=== PATIENT | male | born 1970 | race Caucasian/White ===

== ENCOUNTER 2017-05-14 16:34 | Emergency (ER) | payer MEDICAID, OTHER ==
[~2017-05-14] VITALS: Ht 152.4 cm; Wt 55.5 kg
[2017-05-14 16:38] VITALS: Ht 152.4 cm; Wt 55.5 kg
[2017-05-14] MEDS ORDERED: IBUPROFEN 800 MG TAB PO ONE (17:00)
--- NOTE | 2017-05-14 18:16 | RADRPT ---
PROCEDURE: XR Forearm. CLINICAL INDICATION: trauma, pain TECHNIQUE: AP and lateral views of the right forearm were obtained. COMPARISON: No prior studies are available for comparison. FINDINGS: There is normal mineralization and alignment. No fracture or osseous lesion is identified. The soft tissues are unremarkable. IMPRESSION: No definite abnormalities are identified. RPTAT:AAJJ Levar Rodriguez Physician Date Time Electronically viewed and signed by Levar Rodriguez Physician on 05/14/2017 18:16 /
--- NOTE | 2017-05-14 18:18 | RADRPT ---
PROCEDURE: XR Right Elbow. CLINICAL INDICATION: Pain, injury TECHNIQUE: AP, lateral and oblique views of the elbow performed. COMPARISON: None. FINDINGS: There is normal mineralization and alignment. No fracture or osseous lesion is identified. There is no significant joint space narrowing. There is a suggestion of an anterior fat pad sign. The soft tissues are unremarkable. IMPRESSION: Suggestion of an anterior fat pad sign. A followup study in 7 days is recommended to exclude an occ ult fracture. No acute fracture is currently identified. RPTAT:AAJJ Physician Jesse Date Time Electronically viewed and signed by Levar Rodriguez Physician on 05/14/2017 18:18 MONICA/
[2017-05-14] MEDS ORDERED: IBUP800T25 PO (18:24)
--- NOTE | 2017-05-14 18:24 | ERD ---
ER Documentation Chief Complaint Date/Time DATE: 05/14/17 TIME: 18:22 Chief Complaint Complains of right arm pain after a fall HPI This is a 46-year-old male who presents to the emergency room for evaluation of right arm pain after a fall. The patient states that he was in his garage and he fell forward and hit his elbow on a can of paint. The patient denies head injury or loss of consciousness. He localizes pain to the right elbow, states is worse with movement of the elbow. He came to the emergency room today for evaluation. ROS All systems reviewed and are negative except as per history of present illness. Allergies Allergies: Coded Allergies: No Known Allergy (Unverified , 05/14/17) PMhx/Soc History of Surgery: No Anesthesia Reaction: No Hx Neurological Disorder: No Hx Respiratory Disorders: No Hx Cardiac Disorders: No Hx Psychiatric Problems: No Hx Miscellaneous Medical Probl: No Hx Alcohol Use: Yes Hx Substance Use: No Hx Tobacco Use: No Physical Exam Vitals Vital Signs Date Time Temp Pulse Resp B/P Pulse Ox O2 Delivery O2 Flow Rate FiO2 05/14/17 16:38 100.5 104 20 133/96 99 Physical Exam INITIAL VITAL SIGNS: Reviewed by me GENERAL: The patient is well developed and appropriate for usual state of health in no apparent distress HEENT: Pupils equal, round, and reactive to light. EOMI. There is no scleral icterus. NECK: C-spine is soft and supple, there is no meningismus. There is no cervical lymphadenopathy. LUNGS: Clear to auscultation bilaterally. There are no rales, wheezes or rhonchi. HEART: Regular rate and rhythm, no murmurs, clicks, rubs or gallops. ABDOMEN: Soft, non-tender, non-distended. There are bowel sounds in all four quadrants. No rebound or guarding. EXTREMITIES: Soft tissue swelling noted at right elbow, partial limitation of right first digit, there is no peripheral cyanosis or edema. No focal swelling or erythema. NEUROLOGICAL: The patient moves all four extremities with 5/5 strength. Cranial nerves II - XII are intact. Normal gait. Alert and oriented SKIN: There is no apparent rash or petechiae. HEME/LYMPHATIC: There is no evidence of excessive bruising or lymphedema. PSYCHIATRIC: The patient does not appear anxious or depressed. Results 24 hrs Current Medications Medications (Trade) Dose Ordered Sig/Shell Route PRN Reason Start Time Stop Time Status Last Admin Dose Admin Ibuprofen (Motrin) 800 mg ONCE ONCE PO 05/14/17 17:00 05/14/17 17:03 DC 05/14/17 17:00 Procedures/MDM X-ray Forearm 2V Interpreted by me: Bones: No fracture Joints: No dislocation Foreign body: None X-ray Elbow 2V Interpreted by me: Fat Pads: Anterior fat pad Bones: No fracture Joints: No dislocation Foreign body: None This 46-year-old male presents to the ER for evaluation after a ground-level fall which she hit his right elbow. He did have soft tissue swelling on my examination. This patient has an x-ray done which shows an anterior fat pad sign. There is no obvious fracture however I advised the patient that occult fractures may not be apparent immediately after a fall. I advised him to return to the ER in 7 days for repeat x-rays and he verbalized understanding. The patient was placed in the right arm sling. He will be discharged home with a prescription for Motrin, and orthopedic referral. A right upper extremity arms splint was applied by the tech under my direct supervision. After splint application, the patient was appreciated to have a normal distal neurovascular examination. Departure Diagnosis: Primary Impression: Contusion of right elbow Condition: Stable COLTEN OSUNA DO May 14, 2017 18:24
== END 2017-05-14 18:35 | disposition home or self-care (01) ==
LOC: FTE 16:34
DX: S50.01XA Contusion of right elbow, initial encounter (principal); W01.198A Fall on same level from slipping, tripping and stumbling with subsequent striking against other object, initial encounter; Y92.9 Unspecified place or not applicable
CPT/HCPCS: 73080; 73090; Z7610

== ENCOUNTER 2017-05-18 11:32 | Inpatient (IN) | payer MEDICAID ==
[~2017-05-18] VITALS: Ht 152.4 cm; Wt 53.0 kg
[~2017-05-18 11:32] MED LIST: IBUP800T25 PO
--- NOTE | 2017-05-18 13:18 | RADRPT ---
PROCEDURE: XR Elbow 3 Views. CLINICAL INDICATION: Right elbow pain. TECHNIQUE: AP, lateral and oblique views of the right elbow performed. COMPARISON: May 14, 2017 FINDINGS: The osseous structures are intact. No destructive bony lesions are observed. Interosseous spaces a ppear normal. Soft tissues surrounding the elbow are unremarkable. IMPRESSION: Unremarkable right elbow. If further characterization is needed CT or MRI could be helpful. If there is high clinical suspicion for traumatic injury, further evaluation with CT should be consi dered. RPTAT: AA .Gamaliel Peterson MD, MD Date Time Electronically viewed and signed by .Gamaliel Peterson MD, on 05/18/2017 13:18 .P/
[2017-05-18 13:59] LABS: ADD SCAN DIFF NO
[2017-05-18 14:01] LABS: BASOPHIL # 0.1 10^3/ul (0.0-0.1); BASOPHILS % 0.8 % (0.0-2.0); EOSINOPHILS % 0.2 % (0.0-7.0); HEMATOCRIT 34.3 % (42.0-52.0); HEMOGLOBIN 11.7 g/dl (14.0-18.0); LYMPHOCYTES # 1.5 10^3/ul (0.8-2.9); LYMPHOCYTES % 13.4 % (15.0-51.0); MEAN CORPUSCULAR HEMOGLOBIN 31.1 pg (29.0-33.0); MEAN CORPUSCULAR HGB CONC 34.1 g/dl (32.0-37.0); MEAN CORPUSCULAR VOLUME 91.2 fl (82.0-101.0); MEAN PLATELET VOLUME 9.5 fl (7.4-10.4); MONOCYTE # 1.4 10^3/ul (0.3-0.9); MONOCYTES % 12.5 % (0.0-11.0); NEUTROPHIL # 8.3 10^3/ul (1.6-7.5); PLATELET COUNT 202 10^3/UL (140-415); RED BLOOD COUNT 3.76 10^6/ul (4.70-6.10); RED CELL DISTRIBUTION WIDTH 15.7 % (11.5-14.5); WHITE BLOOD COUNT 11.5 10^3/ul (4.8-10.8)
[2017-05-18] MEDS ORDERED: CEFTRIAXONE 1 GM/50 ML (PMX) 50 ML IVPB ONE (15:00)
[2017-05-18 16:37] LABS: ALBUMIN 3.9 g/dl (3.3-4.9); ALBUMIN/GLOBULIN RATIO 0.95; BILIRUBIN,DIRECT 1.6 mg/dl (0.00-0.20); BILIRUBIN,INDIRECT 1.4 mg/dl (0-1.1); CALCIUM 8.9 mg/dl (8.4-10.2); CREATININE 0.75 mg/dl (0.61-1.24); POTASSIUM 3.5 mmol/L (3.5-5.1)
[2017-05-18] MEDS ORDERED: KETOROLAC 30 MG INJ IV STA (16:38)
--- NOTE | 2017-05-18 16:48 | ERA ---
ER Documentation Chief Complaint Date/Time DATE: 05/18/17 TIME: 16:41 Chief Complaint here for recheck on rt elbow pain HPI Patient is a 46-year-old male who presents to the emergency department for a right elbow recheck. Patient was seen here on 05-14-17 and at that time diagnosed with a possible occult fracture of his right elbow secondary to an anterior fat pad. Patient states on 05-14-17, he was walking when he tripped and landed on patient cannot. Patient states since that time he has continued to have pain in his right elbow. Patient also reports swelling, redness and warmth to the affected area. Patient states he has been having tactile fevers. He reports taking ibuprofen for his symptoms. Patient is right-hand dominant. Patient denies any previous injuries to the affected extremity. ROS All systems reviewed and are negative except as per history of present illness. Medications Home Meds Discontinued Scripts Ibuprofen* (Motrin*) 800 Mg Tab, 800 MG PO Q6H Y for PAIN AND OR ELEVATED TEMP, #30 TAB Prov:COLTEN OSUNA 05/14/17 Allergies Allergies: Coded Allergies: No Known Allergy (Unverified , 05/18/17) PMhx/Soc History of Surgery: No Anesthesia Reaction: No Hx Neurological Disorder: No Hx Respiratory Disorders: No Hx Cardiac Disorders: No Hx Psychiatric Problems: No Hx Miscellaneous Medical Probl: No Hx Alcohol Use: Yes Hx Substance Use: No Hx Tobacco Use: No Smoking Status: Never smoker FmHx Family History: No diabetes Physical Exam Vitals Vital Signs Date Time Temp Pulse Resp B/P Pulse Ox O2 Delivery O2 Flow Rate FiO2 05/18/17 19:05 98.8 55 18 116/77 99 Room Air 05/18/17 11:35 97.6 98 18 114/77 99 Physical Exam GENERAL: Well-developed, well-nourished male. Appears in no acute distress. HEAD: Normocephalic, atraumatic. EYES: Pupils are equally reactive bilaterally. EOMs grossly intact. No conjunctival erythema. Scleral icterus noted. ENT: Moist mucous membranes. No uvula deviation. No kissing tonsils. NECK: Supple. No meningismus. Normal range of motion of the neck. LUNG: Clear to auscultation bilaterally. No rhonchi, wheezing, rales or coarse breath sounds. HEART: Regular rate and rhythm. No murmurs, rubs or gallops. EXTREMITIES: Equal pulses bilaterally. No peripheral clubbing, cyanosis or edema. No unilateral leg swelling. NEUROLOGIC: Alert and oriented. Moving all four extremities without any difficulty. Normal speech. Steady gait. SKIN: Normal color. Warm and dry. No rashes or lesions. RIGHT ELBOW: Numerous superficial abrasions distal to elbow. No obvious deformity. Significant swelling and redness surrounding the patient's elbow joint. No ecchymosis. Patient has decreased passive and active range of motion secondary to pain and swelling. Able to supinate and pronate. Sensation intact to light touch. Neurovascular intact. Patient able to give thumbs up, make okay sign, cross digits 2 and 3, thumb to pinky opposition. 2+ radial pulses. Normal capillary refill. Result Diagram: 05/18/17 1345 05/18/17 1600 Results 24 hrs Laboratory Tests Test 05/18/17 13:45 05/18/17 16:00 White Blood Count 11.510^3/ul Red Blood Count 3.7610^6/ul Hemoglobin 11.7g/dl Hematocrit 34.3% Mean Corpuscular Volume 91.2fl Mean Corpuscular Hemoglobin 31.1pg Mean Corpuscular Hemoglobin Concent 34.1g/dl Red Cell Distribution Width 15.7% Platelet Count 34134^3/UL Mean Platelet Volume 9.5fl Neutrophils % 72.0% Lymphocytes % 13.4% Monocytes % 12.5% Eosinophils % 0.2% Basophils % 0.8% Nucleated Red Blood Cells % 0.0/100WBC Neutrophils # 8.310^3/ul Lymphocytes # 1.510^3/ul Monocytes # 1.410^3/ul Eosinophils # 0.010^3/ul Basophils # 0.110^3/ul Nucleated Red Blood Cells # 0.010^3/ul Erythrocyte Sedimentation Rate 72mm/Hr C-Reactive Protein 8.1mg/dl Sodium Level 133mmol/L Potassium Level 3.5mmol/L Chloride Level 92mmol/L Carbon Dioxide Level 26mmol/L Anion Gap 19 Blood Urea Nitrogen 7mg/dl Creatinine 0.75mg/dl Glucose Level 98mg/dl Calcium Level 8.9mg/dl Total Bilirubin 3.0mg/dl Direct Bilirubin 1.60mg/dl Indirect Bilirubin 1.4mg/dl Aspartate Amino Transf (AST/SGOT) 101IU/L Alanine Aminotransferase (ALT/SGPT) 104IU/L Alkaline Phosphatase 264IU/L Creatine Kinase 158IU/L Creatine Kinase Index 2.4 Creatinine Kinase MB (Mass) 3.80ng/ml Troponin I < 0.012ng/ml Total Protein 8.0g/dl Albumin 3.9g/dl Globulin 4.10g/dl Albumin/Globulin Ratio 0.95 Current Medications Medications (Trade) Dose Ordered Sig/Shell Route PRN Reason Start Time Stop Time Status Last Admin Dose Admin Ceftriaxone Sodium (Rocephin) 50 ml @ 100 mls/hr ONCE ONCE IVPB 05/18/17 15:00 05/18/17 15:29 DC 05/18/17 14:43 Ketorolac Tromethamine (Toradol) 30 mg ONCE STAT IV 05/18/17 16:38 05/18/17 16:40 DC 05/18/17 16:47 IV Flush 10 ml 10 ml STK-MED ONCE .ROUTE 05/18/17 17:19 05/18/17 17:20 DC 05/18/17 17:38 Sodium Chloride (NS) 100 ml @ ud STK-MED ONCE .ROUTE 05/18/17 17:19 05/18/17 17:20 DC 05/18/17 17:38 Iohexol 150 ml 150 ml STK-MED ONCE .ROUTE 05/18/17 17:19 05/18/17 17:20 DC 05/18/17 17:38 Piperacillin Sod/ Tazobactam Sod 100 ml @ 200 mls/hr ONCE ONCE IVPB 05/18/17 18:30 05/18/17 18:59 DC 05/18/17 19:05 Vancomycin HCl (Vancocin) 250 ml @ 125 mls/hr ONCE IVPB 05/18/17 18:30 05/18/17 20:29 05/18/17 19:35 Ondansetron HCl (Zofran Inj) 4 mg BRIDGE ORDER PRN IV NAUSEA AND/OR VOMITING 05/18/17 19:00 05/19/17 18:59 Acetaminophen (Tylenol Tab) 650 mg ER BRIDGE PRN PO MILD PAIN/FEVER 05/18/17 19:00 05/19/17 18:59 Procedures/MDM ED COURSE: The patient was stable throughout ED course. I kept the patient and/or family informed of laboratory and diagnostic imaging results throughout the ED course. DIAGNOSTIC IMAGING: Read by radiologist. DIAGNOSTIC IMAGING REPORT Patient: TAMARA CHIANG : 1970 Age: 46 Sex: M MR #: [id number] DOS: 05/18/17 1233 Ordering MD: CHRISS CRAIN PA-C Location: [facility] Room/Bed: PROCEDURE: XR Elbow 3 Views. CLINICAL INDICATION: Right elbow pain. TECHNIQUE: AP, lateral and oblique views of the right elbow performed. COMPARISON: May 14, 2017 FINDINGS: The osseous structures are intact. No destructive bony lesions are observed. Interosseous spaces appear normal. Soft tissues surrounding the elbow are unremarkable. IMPRESSION: Unremarkable right elbow. If further characterization is needed CT or MRI could be helpful. If there is high clinical suspicion for traumatic injury, further evaluation with CT should be considered. RPTAT: AA .Gamaliel Peterson MD, Date Time Electronically viewed and signed by .Gamaliel Peterson MD, MD on 05/18/2017 13:18 .P/ CC: CHRISS CRAIN PA-C MEDICATIONS GIVEN: IV Rocephin, Toradol, Zosyn, Vancomycin Patient tolerated medication well with no adverse reactions. MEDICAL DECISION MAKING: This is a 46-year-old male who presents to the ED with right elbow pain after fall injury last week. Patient reports worsening pain, swelling and redness to the affected site. Patient was advised to return to the ED for repeat x-rays. Vital signs were reviewed. Patient was afebrile. Repeat x-rays of the right elbow were unremarkable. Patient was noted to have a WBC count of 11.5. Patient's ESR was noted to be 72. Patient's CRP was noted to be 8.1. Patient was given antibiotics and pain medication. Patient's alk phos was noted to be 264, ALT 104, AST 101, total bili 3.0. CK-MB was noted to be 3.8. I discussed the patient's findings with my supervising physicians, Drs. Bonilla and Lacho, who advised me to order a CT of the patient's right extremity with contrast. CT of right upper extremity with IV contrast pending. Case signed out to Dr. Monk. Prior to sign out patient was stable. Patient will be admitted for further workup of elevated liver enzymes and elbow presentation. Departure Diagnosis: Primary Impression: Pain and swelling of right elbow Additional Impressions: Jaundice Transaminitis Condition: Stable Referrals: [facility] YOU HAVE RECEIVED A MEDICAL SCREENING EXAM AND THE RESULTS INDICATE THAT YOU DO NOT HAVE A CONDITION THAT REQUIRES URGENT TREATMENT IN THE EMERGENCY DEPARTMENT. FURTHER EVALUATION AND TREATMENT OF YOUR CONDITION CAN WAIT UNTIL YOU ARE SEEN IN YOUR DOCTORS OFFICE WITHIN THE NEXT 1-2 DAYS. IT IS YOUR RESPONSIBILITY TO MAKE AN APPOINTMENT FOR FOLOW-UP CARE. IF YOU HAVE A PRIMARY DOCTOR --you should call your primary doctor and schedule an appointment IF YOU DO NOT HAVE A PRIMARY DOCTOR YOU CAN CALL OUR PHYSICIAN REFERRAL HOTLINE AT IF YOU CAN NOT AFFORD TO SEE A PHYSICIAN YOU CAN CHOSE FROM THE FOLLOWING [facility] [address] [facility] [address] [employer] [facility]. [place] [address] [facility] [facility] [address] [facility] [address] [facility]. [facility]. [address] [facility]. [facility] YOU HAVE RECEIVED A MEDICAL SCREENING EXAM AND THE RESULTS INDICATE THAT YOU DO NOT HAVE A CONDITION THAT REQUIRES URGENT TREATMENT IN THE EMERGENCY DEPARTMENT. FURTHER EVALUATION AND TREATMENT OF YOUR CONDITION CAN WAIT UNTIL YOU ARE SEEN IN YOUR DOCTORS OFFICE WITHIN THE NEXT 1-2 DAYS. IT IS YOUR RESPONSIBILITY TO MAKE AN APPOINTMENT FOR FOLOW-UP CARE. IF YOU HAVE A PRIMARY DOCTOR --you should call your primary doctor and schedule and appointment IF YOU DO NOT HAVE A PRIMARY DOCTOR YOU CAN CALL OUR PHYSICIAN REFERRAL HOTLINE AT . IF YOU CAN NOT AFFORD TO SEE A PHYSICIAN YOU CAN CHOSE FROM THE FOLLOWING [facility] [address] [place] [address] [facility] [address] [place] [address] [facility] + [facility] [address] [place] [address] Additional Instructions: Call your primary care doctor TOMORROW for an appointment during the next 1-2 days.See the doctor sooner or return here if your condition worsens before your appointment time. CHRISS CRAIN PA-C May 18, 2017 16:48 CHRISS CRAIN PA-C May 18, 2017 16:48
[2017-05-18 16:51] LABS: CREATINE KINASE 158 IU/L (23-200)
[2017-05-18 17:08] LABS: TROPONIN-I < 0.012 ng/ml (0.00-0.12)
[2017-05-18] MEDS ORDERED: IOHEXOL 300MG/ML 150 ML BTL ONE (17:19)
[2017-05-18] MEDS ORDERED: SOD CHLORIDE 0.9% 100 ML ONE (17:19)
[2017-05-18] MEDS ORDERED: PIPER-TAZO 3.375 GM IV (PMX) 100 ML IVPB ONE (18:30)
[2017-05-18] MEDS ORDERED: VANCOMYCIN 1 GM (PMX) 250 ML IVPB SCH (18:30)
[2017-05-18] MEDS ORDERED: ACETAMINOPHEN 325 MG TAB PO PRN ×2 (19:00→20:30)
[2017-05-18] MEDS ORDERED: ONDANSETRON 4 MG INJ IV PRN ×2 (19:00→20:30)
--- NOTE | 2017-05-18 19:35 | RADRPT ---
PROCEDURE: CT right elbow with contrast. CLINICAL INDICATION: Pain, swelling, redness. History of prior fall TECHNIQUE: CT scan of the right elbow was performed on a multi -slice scanner. About 100 ml Omnip aque-300 IV contrast was administered. Coronal and sagittal reformatted images were obtained from the axial source images. The total exam DLP equals 397 mGy-cm. The CDTI volume was 17 mGy. Images we re reviewed on a high-resolution PACS workstation. One or more of the following dose reduction techniques were used: Automated exposure control Adjustment of the mA and/or kV according to patient size. Use of iterative reconstruction technique. COMPARISON: 05/14/2017 radiographs FINDINGS: There is no acute fracture or dislocation. There is mild to moderate joint space narrowing of the u lnohumeral joint more prominent along the medial aspect with mild osseous spurring. The radiocapite llar joint is intact. There is a wlivcwoo-hv-btznn joint effusion with suggestion of synovitis/syno vial thickening. No bony destructive changes are present. There are no erosive changes. There are no osteochondral bodies. There is heterogeneous density of the triceps musculature in which edema and an ill-defined fluid ma y be present. The muscles and tendons around the elbow are limited in evaluation. There is soft tis suzanne stranding with swelling within the posterior, lateral, and medial elbow. There is no drainable abscess or fluid collection within the soft tissues. There is no subcutaneous gas or a sinus tract f rom the skin to the bone. The vascular structures are unremarkable. RPTAT: ZZ IMPRESSION: 1. Moderate to large joint effusion. This may be from trauma given history of fall without a discr ete fracture in which a follow-up MRI may be helpful for additional evaluation for tendon or ligamen tous injury. 2. Mild to moderate osteoarthrosis of the ulnohumeral joint with joint space narrowing and osseous spurring. No bony destructive changes or erosive changes. 3. Mild to moderate edema within the posterior, medial, and lateral elbow. .Nuria Soto MD, MD Date Time Electronically viewed and signed by .Nuria Soto MD, on 05/18/2017 19:35 .T/
--- NOTE | 2017-05-18 19:44 | QN ---
Documentation Comment I have seen and evaluated the patient along with the PA and/or IN [employer] SERVICE TECHNICIAN provider. I agree with the evaluation and plan of care. Please see their documentation for full ER course and evaluation. In short: 46-year-old male who presents after blunt trauma to the right upper extremity with erythema warmth and tenderness and swelling just proximal to the right elbow. Slight limited range of motion secondary to pain. No fevers or chills. On exam: The patient has erythema warmth and tenderness with induration just proximal to the left elbow. Approximately 70% range of motion to the elbow with normal pronation and supination. The patient has soft compartments and 2+ radial and ulnar pulses. Assessment and plan: The patient's right upper extremity is consistent with either myositis versus cellulitis 2/2 to blunt trauma. Consideration of septic arthritis though the patient does have 70% range of motion making this less likely. However the patient's ESR and CRP are elevated. CT imaging shows evidence of effusion. I spoke to Dr. Santoro, on-call for orthopedic surgery. We discussed the case. He additionally feels that this is less likely to be septic arthritis. He agrees with IV antibiotics and inpatient hospitalization with consultation as needed. The patient was given vancomycin and Zosyn his pain is well controlled. The patient is pending hospitalization at this time. Accepting care team and consultations: I discussed the current laboratory data, diagnostic imaging and emergency care provided. Admitting team: Dr. Dinero Admitting team indication: Insurance directed Consulting services: Orthopedic surgeon JULIET Ayala MD May 18, 2017 19:44
[2017-05-18] MEDS ORDERED: morphine 2 MG INJ IV PRN (20:30)
[2017-05-18] MEDS ORDERED: NACL 0.9% 3 ML SYG IV SCH (20:30)
[2017-05-18] MEDS ORDERED: HYDROmorphONE 1 MG/ML SYG IV STA (20:48)
[2017-05-18 20:56] VITALS: PULSE 50; TEMP 98.1
[2017-05-18 21:30] VITALS: BP 111/72; RESP 18
[2017-05-18 22:15] VITALS: Ht 152.4 cm; Wt 53.0 kg
[2017-05-18] MEDS ORDERED: VANCOMYCIN IV PER PHARMACY XX SCH (22:30)
--- NOTE | 2017-05-18 23:04 | HP ---
Date/Time of Note Date/Time of Note DATE: 05/18/17 TIME: 23:03 Assessment/Plan VTE Prophylaxis VTE Prophylaxis Intervention: SCD's Assessment/Plan Chief Complaint/Hosp Course This is a 46-year-old male being admitted to the [facility] floor for: #1 Right upper extremity cellulitis: Mildly elevated white blood cell count. Elevated ESR and CRP. patient has had subjective fevers at home. At the current time will treat with Vanco and Zosyn. Tylenol as needed fevers. IV pain control. #2 right elbow injury: X-ray on 05/14/17 showed a possible anterior fat pad sign. CT scan currently showed joint effusion with no obvious bony destructive process. However MRI was recommended for further ligament and tendon evaluation. MRI ordered for the a.m. Orthopedic surgery was consulted by ED however at this time they will follow-up as indicated by the primary team. #3 transaminitis/hyperbilirubinemia: Patient denies any right upper quadrant tenderness. Does state he has a heavy drinking history. At this time will order hepatitis panel and right upper quadrant ultrasound. GI consult. #4 alcohol abuse: Patient does report that he is going to [employer] meetings. He reports his last drink was 1 week ago. Will still order blood alcohol level and give patient daily banana bag in order vitamin B12 and folate levels. #5 DVT GI prophylaxis: SCDs, Protonix Further treatment strategy will be implemented as per the clinical course. Problems: HPI/ROS Admit Date/Time Admit Date/Time May 18, 2017 at 18:34 Hx of Present Illness cc: right elbow pain Patient is a 46-year-old male who presents to the emergency department for a right elbow recheck. Patient was seen here on 05-14-17 and at that time diagnosed with a possible occult fracture of his right elbow secondary to an anterior fat pad. Patient states on 05-14-17, he was walking when he tripped and landed on patient cannot. Patient states since that time he has continued to have pain in his right elbow. Patient also reports swelling, redness and warmth to the affected area. Patient states he has been having tactile fevers. He reports taking ibuprofen for his symptoms. Patient is right-hand dominant. Patient denies any previous injuries to the affected extremity. allergies:nkda meds: none ROS Const: As per HPI Eyes : No pain discharge or redness or change in visual acuity ENT: No pain, sore throat, congestion, congestion, dysphagia or discharge Respiratory: No shortness of breath, cough, sputum, wheezing, or pleuritic pain Cardiovascular: No chest pain, palpitation, PND, or edema GI : no change in appetite, abdominal pain, nausea, vomiting, diarrhea, constipation, or change in the color his stool Genitourinary: No dysuria, hematuria, flank pain , discharge or CVA tenderness Musculoskeletal: As per HPI Skin: No rash, bruising or hives Neuro: No headache, dizziness, syncope, seizure, focal weakness Endocrine: No polyuria, polydipsia, temperature intolerance Psych: No hallucination, depression, anxiety or suicidal ideation PMH/Family/Social Past Medical History Right thumb traumatic accident Past Surgical History Right thumb accident status post surgery Family History Significant Family History: heart disease (Sister) Social History Alcohol Use: heavy (Sixpack of beer a day. States his last drink was 1 week ago.) Smoking Status: Never smoker Drug Use: none Exam/Review of Systems Vital Signs Vitals Vital Signs Date Time Temp Pulse Resp B/P Pulse Ox O2 Delivery O2 Flow Rate FiO2 05/18/17 21:30 98.6 63 18 111/72 97 05/18/17 20:56 Room Air Exam Exam General: Patient is well-developed well-nourished The patient is alert oriented -3 lying comfortably in bed. HEENT: Atraumatic, normocephalic. The pupils are equal, round and reactive. Extraocular motor are intact Neck: Supple with full range of motion. No rigidity or meningismus Chest: Nontender Lungs: Clear to auscultation bilaterally no crackles rales or wheezing Heart: Normal S1-S2, Regular rhythm and rate. No murmur, S3, or S4 Abdomen: Soft , nontender, nondistended , bowel sounds are present. No right upper quadrant tenderness, no overt organomegaly appreciated no guarding no rebound tenderness , No costovertebral temporal angle mass Extremities: Right upper extremity elbow: Limited range of motion, swelling warmth and redness. 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 CLINICAL INDICATION: Pain, swelling, redness. History of prior fall TECHNIQUE: CT scan of the right elbow was performed on a multi -slice scanner. About 100 ml Omnipaque-300 IV contrast was administered. Coronal and sagittal reformatted images were obtained from the axial source images. The total exam DLP equals 397 mGy-cm. The CDTI volume was 17 mGy. Images were reviewed on a high-resolution PACS workstation. One or more of the following dose reduction techniques were used: Automated exposure control Adjustment of the mA and/or kV according to patient size. Use of iterative reconstruction technique. COMPARISON: 05/14/2017 radiographs FINDINGS: There is no acute fracture or dislocation. There is mild to moderate joint space narrowing of the ulnohumeral joint more prominent along the medial aspect with mild osseous spurring. The radiocapitellar joint is intact. There is a ymmbzzon-ji-migyb joint effusion with suggestion of synovitis/synovial thickening. No bony destructive changes are present. There are no erosive changes. There are no osteochondral bodies. There is heterogeneous density of the triceps musculature in which edema and an ill-defined fluid may be present. The muscles and tendons around the elbow are limited in evaluation. There is soft tissue stranding with swelling within the posterior, lateral, and medial elbow. There is no drainable abscess or fluid collection within the soft tissues. There is no subcutaneous gas or a sinus tract from the skin to the bone. The vascular structures are unremarkable. RPTAT: ZZ IMPRESSION: 1. Moderate to large joint effusion. This may be from trauma given history of fall without a discrete fracture in which a follow-up MRI may be helpful for additional evaluation for tendon or ligamentous injury. 2. Mild to moderate osteoarthrosis of the ulnohumeral joint with joint space narrowing and osseous spurring. No bony destructive changes or erosive changes. 3. Mild to moderate edema within the posterior, medial, and lateral elbow. .Nuria Soto MD, MD Date Time Electronically viewed and signed by .Nuria Soto MD, MD on 05/18/2017 19: 35 PROCEDURE: XR Elbow 3 Views. CLINICAL INDICATION: Right elbow pain. TECHNIQUE: AP, lateral and oblique views of the right elbow performed. COMPARISON: May 14, 2017 FINDINGS: The osseous structures are intact. No destructive bony lesions are observed. Interosseous spaces appear normal. Soft tissues surrounding the elbow are unremarkable. IMPRESSION: Unremarkable right elbow. If further characterization is needed CT or MRI could be helpful. If there is high clinical suspicion for traumatic injury, further evaluation with CT should be considered. Labs Result Diagram: 05/18/17 1345 05/18/17 1600 Medications Medications Current Medications Ondansetron HCl (Zofran Inj) 4 mg Q6H PRN IV NAUSEA AND/OR VOMITING Last administered on 05/18/17t 20:53; Admin Dose 4 MG; Start 05/18/17 at 20:30 Acetaminophen (Tylenol Tab) 650 mg Q6H PRN PO PAIN LEVEL 1-3 OR FEVER; Start at 20:30 Morphine Sulfate (morphine) 2 mg Q4H PRN IV SEVERE PAIN LEVEL 7-10; Start at 20:30 Pantoprazole 40 mg 40 mg DAILY@06 IV ; Start 05/19/17 at 06:00 Piperacillin Sod/ Tazobactam Sod 100 ml @ 200 mls/hr Q6 IVPB ; Start 05/19/17 at 00:00 Vancomycin HCl (Vancocin) 250 ml @ 125 mls/hr Q12H IVPB ; Start 05/19/17 at 08: 00 MALCOLM DOUGLAS May 18, 2017 23:04
[2017-05-18 23:49] LABS: HAAIG REFLEX REFLEX FILED
[2017-05-18] MEDS: PIPER-TAZO 3.375 GM IV (PMX) 100 ML IVPB SCH (23:57)
[2017-05-19] MEDS ORDERED: LORAZEPAM 2 MG INJ IV PRN (01:00)
[2017-05-19 02:13] LABS: HEPATITIS B CORE ANTIBODY NEGATIVE (NEGATIVE)
[2017-05-19 05:19] LABS: ADD UMIC YES; UR ASCORBIC ACID 40 mg/dL (NEGATIVE); UR BILIRUBIN (Dip) 2+ mg/dL (NEGATIVE); UR BLOOD (Dip) NEGATIVE (NEGATIVE); UR CLARITY CLEAR (CLEAR); UR COLOR AMBER (YELLOW); UR GLUCOSE (Dip) NEGATIVE (NEGATIVE); UR KETONES (Dip) NEGATIVE (NEGATIVE); UR LEUKOCYTE ESTERASE (Dip) TRACE Leu/ul (NEGATIVE); UR NITRITE (Dip) NEGATIVE (NEGATIVE); UR RBC 0 /HPF (0-5); UR SPECIFIC GRAVITY (Dip) > 1.060 (1.003-1.030); UR TOTAL PROTEIN (Dip) 1+ mg/dl (NEGATIVE); UR UROBILINOGEN (Dip) 2+ mg/dL (NEGATIVE)
[2017-05-19 05:30] LABS: ADD SCAN DIFF NO
[2017-05-19 05:36] LABS: BASOPHIL # 0.1 10^3/ul (0.0-0.1); BASOPHILS % 0.7 % (0.0-2.0); EOSINOPHILS # 0.1 10^3/ul (0.0-0.5); EOSINOPHILS % 0.6 % (0.0-7.0); HEMATOCRIT 31.9 % (42.0-52.0); HEMOGLOBIN 11.1 g/dl (14.0-18.0); LYMPHOCYTES # 1.2 10^3/ul (0.8-2.9); LYMPHOCYTES % 14.5 % (15.0-51.0); MEAN CORPUSCULAR HEMOGLOBIN 32.4 pg (29.0-33.0); MEAN CORPUSCULAR HGB CONC 34.8 g/dl (32.0-37.0); MEAN PLATELET VOLUME 9.7 fl (7.4-10.4); MONOCYTE # 1.4 10^3/ul (0.3-0.9); MONOCYTES % 16.6 % (0.0-11.0); NEUTROPHIL # 5.6 10^3/ul (1.6-7.5); NEUTROPHILS % 66.4 % (39.0-77.0); PLATELET COUNT 205 10^3/UL (140-415); RED BLOOD COUNT 3.43 10^6/ul (4.70-6.10); RED CELL DISTRIBUTION WIDTH 15.4 % (11.5-14.5); WHITE BLOOD COUNT 8.5 10^3/ul (4.8-10.8)
[2017-05-19] MEDS: PIPER-TAZO 3.375 GM IV (PMX) 100 ML IVPB SCH ×3 (06:10→17:44)
[2017-05-19] MEDS: PANTOPRAZOLE 40 MG INJ IV SCH (06:10)
[2017-05-19 06:19] LABS: BARBITURATES Negative (NEGATIVE); BENZODIAZEPINES Negative (NEGATIVE); CANNABINOIDS Negative (NEGATIVE); COCAINE Negative (NEGATIVE); OPIATES Negative (NEGATIVE)
[2017-05-19 06:27] LABS: ALBUMIN 3.2 g/dl (3.3-4.9); ALBUMIN/GLOBULIN RATIO 0.91; BILIRUBIN,DIRECT 0.6 mg/dl (0.00-0.20); BILIRUBIN,TOTAL 1.6 mg/dl (0.2-1.3); CALCIUM 8.8 mg/dl (8.4-10.2); CHOL/HDL RATIO 17.1 RATIO; CREATININE 0.8 mg/dl (0.61-1.24); POTASSIUM 3.9 mmol/L (3.5-5.1); TOTAL PROTEIN 6.7 g/dl (6.1-8.1)
[2017-05-19 06:36] LABS: THYROID STIMULATING HORMONE 2.47 MIU/L (0.465-4.680)
[2017-05-19 07:14] LABS: FOLATE 10.1 ng/ml (2.8-20.0)
[2017-05-19 08:00] VITALS: BP 110/64; RESP 18
[2017-05-19] MEDS ORDERED: VANCOMYCIN 1 GM in NS 250 ML IVPB SCH (08:00)
--- NOTE | 2017-05-19 08:16 | RADRPT ---
PROCEDURE: US Abdomen (right upper quadrant). CLINICAL INDICATION: Elevated LFTs. TECHNIQUE: Multiple real-time longitudinal and transverse images of the right upper quadrant of th e abdomen were acquired utilizing a curved array transducer. Images were reviewed on a high-resoluti on PACS workstation. COMPARISON: None FINDINGS: The liver is mildly enlarged in size measuring 17.9 cm with unremarkable echogenicity without focal mass or intrahepatic biliary dilatation. The gallbladder demonstrate 0.6 cm echogenic focus without posterior shadowing likely represent a polyp. There is no pericholecystic fluid or gallbladder wal l thickening or gallstones. No intra or extrahepatic biliary dilatation is seen. The common bile du ct measures 4.2 mm in maximal dimension. The pancreas is not well visualized for evaluation. No fr ee fluid is identified. The right kidney measures 10.6 cm in length. There is normal echogenicity within the right kidney. There is no perinephric fluid collection. No hydronephrosis, mass, or calculus is seen. IMPRESSION: 1. Mild hepatomegaly. 2. 0.6 cm probable gallbladder polyp. 3. The pancreas is not visualized. 4. Otherwise unremarkable right upper quadrant ultrasound. RPTAT: PP .Whitley Clark MD, MD Date Time Electronically viewed and signed by .Whitley Clark MD, MD on 05/19/2017 08:16 .N/
[2017-05-19] MEDS: MULTIVITAMINS 10 ML, THIAMINE 100 MG, FOLIC ACID 1 MG in SOD CHLORIDE 0.9% 1,000 ML IVPB SCH (10:13)
--- NOTE | 2017-05-19 14:14 | PN ---
Date/Time of Note Date/Time of Note DATE: 05/19/17 TIME: 14:10 Assessment/Plan VTE Prophylaxis VTE Prophylaxis Intervention: SCD's Lines/Catheters IV [facility]from [facility] Peripheral IV Urinary Cath still in place: No Assessment/Plan Chief Complaint/Hosp Course A/P: 46-year-old male being admitted to the [facility] floor for: #1 Right upper extremity cellulitis: Mildly elevated white blood cell count. Elevated ESR and CRP. patient has had subjective fevers at home. - continue Vanco and Zosyn. - Tylenol as needed fevers. - IV pain control. #2 right elbow injury: X-ray on 05/14/17 showed a possible anterior fat pad sign. CT scan currently showed joint effusion with no obvious bony destructive process. However MRI was recommended for further ligament and tendon evaluation. - f/u MRI ordered for the a.m. - will consult Orthopedic surgery if any abnormalities on MRI. #3 transaminitis/hyperbilirubinemia: Patient denies any right upper quadrant tenderness. Does state he has a heavy drinking history. - f/u hepatitis panel and right upper quadrant ultrasound. - consider GI consult. - monitor for withdrawal, #4 alcohol abuse: Patient does report that he is going to AA meetings. He reports his last drink was 1 week ago. - again, f/u blood alcohol level and give patient daily banana bag in order vitamin B12 and folate levels, ativan prn #5 DVT GI prophylaxis: SCDs, Protonix Problems: Subjective 24 Hr Interval Summary Free Text/Dictation Pt still has RUE pain. Exam/Review of Systems Vital Signs Vitals Vital Signs Date Time Temp Pulse Resp B/P Pulse Ox O2 Delivery O2 Flow Rate FiO2 05/19/17 08:00 98.8 80 18 110/64 98 05/18/17 20:56 Room Air Intake and Output 05/18/17 05/18/17 05/19/17 15:00 23:00 07:00 Intake Total 200 ml Balance 200 ml Exam General: Patient is well-developed well-nourished The patient is alert oriented -3 lying comfortably in bed. HEENT: Atraumatic, normocephalic. The pupils are equal, round and reactive. Extraocular motor are intact Neck: Supple with full range of motion. No rigidity or meningismus Chest: Nontender Lungs: Clear to auscultation bilaterally no crackles rales or wheezing Heart: Normal S1-S2, Regular rhythm and rate. No murmur, S3, or S4 Abdomen: Soft , nontender, nondistended , bowel sounds are present. No right upper quadrant tenderness, no overt organomegaly appreciated no guarding no rebound tenderness , No costovertebral temporal angle mass Extremities: Right upper extremity elbow: Limited range of motion, + swelling warmth and redness. 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 Neurologic: Normal mental status, speech normal, cranial nerves II through XII are intact, motor and sensory are intact, no focal weakness Results Result Diagram: 05/19/17 0500 05/19/17 0500 Results 24 hrs Laboratory Tests Test 05/18/17 16:00 05/19/17 04:00 05/19/17 05:00 Sodium Level 133 L 141 Potassium Level 3.5 3.9 Chloride Level 92 L 102 # Carbon Dioxide Level 26 25 Anion Gap 19 H 18 H Blood Urea Nitrogen 7 10 Creatinine 0.75 0.80 Glucose Level 98 95 Calcium Level 8.9 8.8 Total Bilirubin 3.0 H 1.6 H Direct Bilirubin 1.60 H 0.60 #H Indirect Bilirubin 1.4 H 1.0 Aspartate Amino Transf (AST/SGOT) 101 H 71 H Alanine Aminotransferase (ALT/SGPT) 104 H 74 H Alkaline Phosphatase 264 H 199 H Creatine Kinase 158 Creatine Kinase Index 2.4 Creatinine Kinase MB (Mass) 3.80 H Troponin I < 0.012 Total Protein 8.0 6.7 # Albumin 3.9 3.2 L Globulin 4.10 H 3.50 H Albumin/Globulin Ratio 0.95 0.91 Urine Color [place]VAR[place]O Urine Clarity CLEAR Urine pH 6.0 Urine Specific [place] > 1.060 H Urine Ketones NEGATIVE Urine Nitrite NEGATIVE Urine Bilirubin 2+ H Urine Urobilinogen 2+ H Urine Leukocyte Esterase TRACE A Urine Microscopic RBC 0 Urine Microscopic WBC 4 Urine Hemoglobin NEGATIVE Urine Glucose NEGATIVE Urine Total Protein 1+ H Urine Opiates Screen Negative Urine Barbiturates Negative Urine Amphetamines Screen Negative Urine Benzodiazepines Screen Negative Urine Cocaine Screen Negative Urine Cannabinoids Negative White Blood Count 8.5 # Red Blood Count 3.43 L Hemoglobin 11.1 L Hematocrit 31.9 L Mean Corpuscular Volume 93.0 Mean Corpuscular Hemoglobin 32.4 Mean Corpuscular Hemoglobin Concent 34.8 Red Cell Distribution Width 15.4 H Platelet Count 205 Mean Platelet Volume 9.7 Neutrophils % 66.4 Lymphocytes % 14.5 L Monocytes % 16.6 H Eosinophils % 0.6 Basophils % 0.7 Nucleated Red Blood Cells % 0.0 Neutrophils # 5.6 Lymphocytes # 1.2 Monocytes # 1.4 H Eosinophils # 0.1 Basophils # 0.1 Nucleated Red Blood Cells # 0.0 Hemoglobin A1c 5.5 Triglycerides Level 221 H Cholesterol Level 171 LDL Cholesterol, Calculated 117 HDL Cholesterol 10 L Cholesterol/HDL Ratio 17.1 Vitamin B12 Level 960 H Folate 10.1 Thyroid Stimulating Hormone (TSH) 2.470 Medications Medications Current Medications Ondansetron HCl (Zofran Inj) 4 mg Q6H PRN IV NAUSEA AND/OR VOMITING Last administered on 05/18/17 20:53; Admin Dose 4 MG; Start 05/18/17 at 20:30 Acetaminophen (Tylenol Tab) 650 mg Q6H PRN PO PAIN LEVEL 1-3 OR FEVER; Start at 20:30 Morphine Sulfate (morphine) 2 mg Q4H PRN IV SEVERE PAIN LEVEL 7-10; Start at 20:30 Pantoprazole 40 mg 40 mg DAILY@06 IV Last administered on 05/19/17 06:10; Admin Dose 40 MG; Start 05/19/17 at 06:00 Piperacillin Sod/ Tazobactam Sod 100 ml @ 200 mls/hr Q6 IVPB Last administered on 05/19/17 12:23; Admin Dose 200 MLS/HR; Start 05/19/17 at 00:00 Multivitamins/ Thiamine HCl/ Folic Acid/Sodium Chloride (Mvi Adult/ Vitamin B1/ Folic Acid/NS) 1,011.2 ml @ 125 mls/ hr DAILY@09 IVPB Last administered on 05/19 10:13; Admin Dose 125 MLS/HR; Start 05/19/17 at 09:00 Lorazepam 1 mg 1 mg Q6H PRN IV AGITATION/ANXIETY; Start 05/19/17 at 01:00 Vancomycin HCl/ Sodium Chloride (Vancocin/NS) 150 ml @ 75 mls/hr Q12H IVPB ; Start 05/19/17 at 20:00 Miscellaneous Information (*Rx Drug Level Order Reminder*) 1 ONCE ONCE XX ; Start 05/20/17 at 07:00; Stop 05/20/17 at 07:01 MENDY BECERRA May 19, 2017 14:14
[2017-05-19] MEDS: VANCOMYCIN 750 MG in SOD CHLORIDE 0.9% 150 ML IVPB SCH (19:45)
--- NOTE | 2017-05-19 19:58 | RADRPT ---
PROCEDURE: MRI OF THE RIGHT ELBOW WITHOUT AND WITH CONTRAST. CLINICAL INDICATION: Abnormal right elbow CT, history of prior fall with pain and swelling TECHNIQUE: Multiple MRI images were obtained utilizing multiple pulse sequences in all three planes before and after the intravenous administration of 10 cc of Magnevist gadolinium. Images were inte rpreted on high-resolution PACS system. COMPARISON: 05/18/2017 CT FINDINGS: The common extensor tendon is intact. The radial collateral and lateral ulnar collateral ligaments are intact. The common flexor tendon is intact. The medial collateral ligament is intact. There is edema within the flexor digitorum superficialis muscle with a partial tear on axial images 21 - 28. There is mild bone marrow edema within the medial aspect of the coronoid process of the ulna with a small focus of high-grade chondral loss in part to bone and a 2 x 2 mm focus of chondral delaminatio n on coronal image 10 and sagittal images 18 - 19. There is also a very small focus of high-grade c hondral loss along the opposing distal humerus. The radiocapitellar joint is intact. There is a mod pmspy-lj-whgdy joint effusion with mild synovitis. No discrete osteochondral bodies are visualized. Alignment is maintained. The distal biceps and brachialis tendons are intact. There is mild to moderate edema within the negra p brachialis muscle. The triceps tendon is intact. There is mild edema within the anconeus muscle. The ulnar nerve is mildly prominent with adjacent soft tissue edema. The cubital tunnel retinaculum is intact. The median and radial nerves are unremarkable. There is edema throughout the subcutaneo us soft tissues of the elbow. RPTAT: QQ IMPRESSION: 1. Small high-grade chondral defect in part to bone within the coronoid process of the ulna with a 2 x 2 mm focus of chondral delamination and underlying mild bone marrow edema. Very small focus of high-grade chondral loss along the opposing distal humerus. 2. Strain of the flexor digitorum superficialis muscle with a partial tear. 3. Strain of the deep brachialis muscle. 4. Moderate to large joint effusion. Diffuse edema throughout the subcutaneous soft tissues of the elbow. 5. The tendons and ligaments around the elbow are largely intact. .Nuria Soto MD, MD Date Time Electronically viewed and signed by .Nuria Soto MD, MD on 05/19/2017 19:58 .T/
[2017-05-19 20:35] VITALS: BP 104/62; RESP 18
[2017-05-20] MEDS: PIPER-TAZO 3.375 GM IV (PMX) 100 ML IVPB SCH ×4 (00:09→18:51)
[2017-05-20] MEDS: PANTOPRAZOLE 40 MG INJ IV SCH (05:32)
[2017-05-20 08:00] VITALS: BP 100/65; RESP 20
[2017-05-20] MEDS: MULTIVITAMINS 10 ML, THIAMINE 100 MG, FOLIC ACID 1 MG in SOD CHLORIDE 0.9% 1,000 ML IVPB SCH (09:00)
[2017-05-20] MEDS: VANCOMYCIN 750 MG in SOD CHLORIDE 0.9% 150 ML IVPB SCH ×2 (09:22→16:23)
--- NOTE | 2017-05-20 15:11 | PN ---
Date/Time of Note Date/Time of Note DATE: 05/20/17 TIME: 15:06 Assessment/Plan VTE Prophylaxis VTE Prophylaxis Intervention: SCD's Lines/Catheters IV Catheter Type (from [facility]): Peripheral IV Urinary Cath still in place: No Assessment/Plan Chief Complaint/Hosp Course A/P: 46-year-old male being admitted to the [facility] floor for: #1 Right upper extremity cellulitis: White blood cell count improved. Elevated ESR and CRP. patient has had subjective fevers at home. - continue Vanco and Zosyn. - Tylenol as needed fevers. - IV pain control. #2 right elbow injury: X-ray on 05/14/17 showed a possible anterior fat pad sign. CT scan currently showed joint effusion with no obvious bony destructive process. However MRI was performed (see results below): - per ortho, no surgery indicated at this time. #3 transaminitis/hyperbilirubinemia: Patient denies any right upper quadrant tenderness. Does state he has a heavy drinking history. - f/u hepatitis panel and right upper quadrant ultrasound. - consider GI consult. - monitor for withdrawal, bananna bag continue #4 alcohol abuse: Patient does report that he is going to [employer] meetings. He reports his last drink was 1 week ago. - again, f/u blood alcohol level and give patient daily banana bag in order vitamin B12 and folate levels, ativan prn #5 DVT GI prophylaxis: SCDs, Protonix Problems: Subjective 24 Hr Interval Summary Free Text/Dictation Pt still with some right arm pain, per nursing. Exam/Review of Systems Vital Signs Vitals Vital Signs Date Time Temp Pulse Resp B/P Pulse Ox O2 Delivery O2 Flow Rate FiO2 05/20/17 08:00 98.6 88 20 100/65 96 05/18/17 20:56 Room Air Intake and Output 05/19/17 05/19/17 05/20/17 15:00 23:00 07:00 Intake Total 350 ml 2070 ml 1411.2 ml Output Total 1300 ml Balance 350 ml 770 ml 1411.2 ml Exam PE: - unable to be performed today b/c pt in the shower presently. Results Result Diagram: 05/19/17 0500 05/19/17 0500 Results 24 hrs Laboratory Tests Test 05/20/17 07:02 Vancomycin Level Trough < 5.0 L Medications Medications Current Medications Ondansetron HCl (Zofran Inj) 4 mg Q6H PRN IV NAUSEA AND/OR VOMITING Last administered on 05/18/17 20:53; Admin Dose 4 MG; Start 05/18/17 at 20:30 Acetaminophen (Tylenol Tab) 650 mg Q6H PRN PO PAIN LEVEL 1-3 OR FEVER; Start at 20:30 Morphine Sulfate (morphine) 2 mg Q4H PRN IV SEVERE PAIN LEVEL 7-10; Start at 20:30 Pantoprazole 40 mg 40 mg DAILY@06 IV Last administered on 05/20/17 05:32; Admin Dose 40 MG; Start 05/19/17 at 06:00 Piperacillin Sod/ Tazobactam Sod 100 ml @ 200 mls/hr Q6 IVPB Last administered on 05/20/17 12:01; Admin Dose 200 MLS/HR; Start 05/19/17 at 00:00 Multivitamins/ Thiamine HCl/ Folic Acid/Sodium Chloride (Mvi Adult/ Vitamin B1/ Folic Acid/NS) 1,011.2 ml @ 125 mls/ hr DAILY@09 IVPB Last administered on 05/20 09:00; Admin Dose 125 MLS/HR; Start 05/19/17 at 09:00 Lorazepam 1 mg 1 mg Q6H PRN IV AGITATION/ANXIETY; Start 05/19/17 at 01:00 Vancomycin HCl/ Sodium Chloride (Vancocin/NS) 150 ml @ 75 mls/hr Q8H IVPB ; Start 05/20/17 at 17:00 Miscellaneous Information (*Rx Drug Level Order Reminder*) VANCO TROUGH @ 0, 800 ON... ONCE ONCE XX ; Start 05/21/17 at 08:00; Stop 05/21/17 at 08:01 Procedures Procedures MRI Right Elbow: IMPRESSION: 1. Small high-grade chondral defect in part to bone within the coronoid process of the ulna with a 2 x 2 mm focus of chondral delamination and underlying mild bone marrow edema. Very small focus of high-grade chondral loss along the opposing distal humerus. 2. Strain of the flexor digitorum superficialis muscle with a partial tear. 3. Strain of the deep brachialis muscle. 4. Moderate to large joint effusion. Diffuse edema throughout the subcutaneous soft tissues of the elbow. 5. The tendons and ligaments around the elbow are largely intact. MENDY BECERRA. May 20, 2017 15:11
[2017-05-20 20:35] VITALS: BP 92/55; RESP 18
[2017-05-21] MEDS: PIPER-TAZO 3.375 GM IV (PMX) 100 ML IVPB SCH ×4 (00:09→18:06)
[2017-05-21] MEDS: VANCOMYCIN 750 MG in SOD CHLORIDE 0.9% 150 ML IVPB SCH ×3 (01:06→17:09)
[2017-05-21 02:08] VITALS: BP 96/56; RESP 18
[2017-05-21] MEDS: PANTOPRAZOLE 40 MG INJ IV SCH (05:58)
[2017-05-21 06:58] LABS: CREATININE 0.72 mg/dl (0.61-1.24)
[2017-05-21 08:00] VITALS: BP 131/61; RESP 18
[2017-05-21] MEDS: MULTIVITAMINS 10 ML, THIAMINE 100 MG, FOLIC ACID 1 MG in SOD CHLORIDE 0.9% 1,000 ML IVPB SCH (12:16)
[2017-05-21 14:15] VITALS: BP 87/50; RESP 18
[2017-05-21 15:23] VITALS: BP 100/59; RESP 19
[2017-05-21 16:13] VITALS: BP 93/57; RESP 18
--- NOTE | 2017-05-21 17:10 | PN ---
Date/Time of Note Date/Time of Note DATE: 05/21/17 TIME: 17:08 Assessment/Plan VTE Prophylaxis VTE Prophylaxis Intervention: SCD's Lines/Catheters IV C[facility]ter Type [facility]from [facility] Peripheral IV Urinary Cath still in place: No Assessment/Plan Chief Complaint/Hosp Course A/P: 46-year-old male being admitted to the [facility] floor for: #1 Right upper extremity cellulitis: White blood cell count improved. Elevated ESR and CRP. patient has had subjective fevers at home. - continue Vanco and Zosyn. - Tylenol as needed fevers. - IV pain control. #2 right elbow injury: X-ray on 05/14/17 showed a possible anterior fat pad sign. CT scan currently showed joint effusion with no obvious bony destructive process. However MRI was performed (see results below): - per ortho, no surgery indicated at this time. #3 transaminitis/hyperbilirubinemia: Patient denies any right upper quadrant tenderness. Does state he has a heavy drinking history. - f/u hepatitis panel and right upper quadrant ultrasound. - consider GI consult. - monitor for withdrawal, bananna bag continue #4 alcohol abuse: Patient does report that he is going to AA meetings. He reports his last drink was 1 week ago. - again, f/u blood alcohol level and give patient daily banana bag in order vitamin B12 and folate levels, ativan prn #5 DVT GI prophylaxis: SCDs, Protonix Problems: Subjective 24 Hr Interval Summary Free Text/Dictation Patient still has some right upper extremity pain, but better range of motion overall Exam/Review of Systems Vital Signs Vitals Vital Signs Date Time Temp Pulse Resp B/P Pulse Ox O2 Delivery O2 Flow Rate FiO2 05/21/17 16:13 98.5 65 18 93/57 98 05/21/17 15:23 Room Air Intake and Output 05/20/17 05/20/17 05/21/17 15:00 23:00 07:00 Intake Total 250 ml 732 ml 2050 ml Balance 250 ml 732 ml 2050 ml Exam General: Patient is well-developed well-nourished The patient is alert oriented -3 lying comfortably in bed. HEENT: Atraumatic, normocephalic. The pupils are equal, round and reactive. Extraocular motor are intact Neck: Supple with full range of motion. No rigidity or meningismus Chest: Nontender Lungs: Clear to auscultation bilaterally no crackles rales or wheezing Heart: Normal S1-S2, Regular rhythm and rate. No murmur, S3, or S4 Abdomen: Soft , nontender, nondistended , bowel sounds are present. No right upper quadrant tenderness, no overt organomegaly appreciated no guarding no rebound tenderness , No costovertebral temporal angle mass Extremities: Right upper extremity elbow: Limited range of motion, + swelling warmth and redness. 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 Neurologic: Normal mental status, speech normal, cranial nerves II through XII are intact, motor and sensory are intact, no focal weakness Results Result Diagram: 05/19/17 0500 05/21/17 0534 Results 24 hrs Laboratory Tests Test 05/21/17 05:34 05/21/17 08:05 Blood Urea Nitrogen 5 L Creatinine 0.72 Vancomycin Level Trough 10.2 Medications Medications Current Medications Ondansetron HCl (Zofran Inj) 4 mg Q6H PRN IV NAUSEA AND/OR VOMITING Last administered on 05/18/17 20:53; Admin Dose 4 MG; Start 05/18/17 at 20:30 Acetaminophen (Tylenol Tab) 650 mg Q6H PRN PO PAIN LEVEL 1-3 OR FEVER; Start at 20:30 Morphine Sulfate (morphine) 2 mg Q4H PRN IV SEVERE PAIN LEVEL 7-10; Start at 20:30 Pantoprazole 40 mg 40 mg DAILY@06 IV Last administered on 05/21/17 05:58; Admin Dose 40 MG; Start 05/19/17 at 06:00 Piperacillin Sod/ Tazobactam Sod 100 ml @ 200 mls/hr Q6 IVPB Last administered on 05/21/17 12:25; Admin Dose 200 MLS/HR; Start 05/19/17 at 00:00 Multivitamins/ Thiamine HCl/ Folic Acid/Sodium Chloride (Mvi Adult/ Vitamin B1/ Folic Acid/NS) 1,011.2 ml @ 125 mls/ hr DAILY@09 IVPB Last administered on 05/21 12:16; Admin Dose 125 MLS/HR; Start 05/19/17 at 09:00 Lorazepam 1 mg 1 mg Q6H PRN IV AGITATION/ANXIETY; Start 05/19/17 at 01:00 Vancomycin HCl/ Sodium Chloride (Vancocin/NS) 150 ml @ 75 mls/hr Q8H IVPB Last administered on 05/21/17t 09:34; Admin Dose 75 MLS/HR; Start 05/20/17 at 17: 00 MENDY BECERRA May 21, 2017 17:10
[2017-05-21 17:46] LABS: ADD SCAN DIFF NO
[2017-05-21 17:48] LABS: BASOPHILS % 0.4 % (0.0-2.0); EOSINOPHILS # 0.2 10^3/ul (0.0-0.5); HEMATOCRIT 29.1 % (42.0-52.0); HEMOGLOBIN 9.5 g/dl (14.0-18.0); LYMPHOCYTES # 1.1 10^3/ul (0.8-2.9); LYMPHOCYTES % 14.3 % (15.0-51.0); MEAN CORPUSCULAR HGB CONC 32.6 g/dl (32.0-37.0); MEAN PLATELET VOLUME 8.8 fl (7.4-10.4); MONOCYTE # 1.1 10^3/ul (0.3-0.9); MONOCYTES % 14.5 % (0.0-11.0); NEUTROPHIL # 4.8 10^3/ul (1.6-7.5); NUCLEATED RED BLOOD CELLS% 0.3 /100WBC (0.0-0.0); PLATELET COUNT 358 10^3/UL (140-415); RED BLOOD COUNT 2.97 10^6/ul (4.70-6.10); WHITE BLOOD COUNT 7.3 10^3/ul (4.8-10.8)
[2017-05-21 18:04] LABS: CALCIUM 7.9 mg/dl (8.4-10.2); CREATININE 0.73 mg/dl (0.61-1.24); POTASSIUM 3.8 mmol/L (3.5-5.1)
[2017-05-21 20:09] VITALS: BP 101/61; RESP 18
[2017-05-22] MEDS: PIPER-TAZO 3.375 GM IV (PMX) 100 ML IVPB SCH ×4 (00:09→17:49)
[2017-05-22] MEDS: VANCOMYCIN 750 MG in SOD CHLORIDE 0.9% 150 ML IVPB SCH ×3 (00:56→17:42)
[2017-05-22 02:57] VITALS: BP 112/68; RESP 18
[2017-05-22 05:43] LABS: ADD SCAN DIFF NO
[2017-05-22 05:49] LABS: BASOPHILS % 0.4 % (0.0-2.0); EOSINOPHILS # 0.1 10^3/ul (0.0-0.5); EOSINOPHILS % 1.6 % (0.0-7.0); HEMATOCRIT 27.1 % (42.0-52.0); LYMPHOCYTES # 1.1 10^3/ul (0.8-2.9); LYMPHOCYTES % 13.2 % (15.0-51.0); MEAN CORPUSCULAR HEMOGLOBIN 32.7 pg (29.0-33.0); MEAN CORPUSCULAR HGB CONC 33.2 g/dl (32.0-37.0); MEAN CORPUSCULAR VOLUME 98.5 fl (82.0-101.0); MONOCYTE # 1.2 10^3/ul (0.3-0.9); MONOCYTES % 15.3 % (0.0-11.0); NEUTROPHIL # 5.3 10^3/ul (1.6-7.5); NEUTROPHILS % 65.9 % (39.0-77.0); PLATELET COUNT 370 10^3/UL (140-415); RED BLOOD COUNT 2.75 10^6/ul (4.70-6.10); RED CELL DISTRIBUTION WIDTH 15.2 % (11.5-14.5)
[2017-05-22 06:07] LABS: CALCIUM 8.3 mg/dl (8.4-10.2); CREATININE 0.66 mg/dl (0.61-1.24); POTASSIUM 3.6 mmol/L (3.5-5.1)
[2017-05-22] MEDS: PANTOPRAZOLE 40 MG INJ IV SCH (06:22)
[2017-05-22 08:02] VITALS: BP 97/62; RESP 17
[2017-05-22] MEDS: MULTIVITAMINS 10 ML, THIAMINE 100 MG, FOLIC ACID 1 MG in SOD CHLORIDE 0.9% 1,000 ML IVPB SCH (08:48)
[2017-05-22 14:33] VITALS: BP 95/57; RESP 77
--- NOTE | 2017-05-22 15:59 | PN ---
Date/Time of Note Date/Time of Note DATE: 05/22/17 TIME: 15:55 Assessment/Plan VTE Prophylaxis VTE Prophylaxis Intervention: SCD's Lines/Catheters IV Catheter Type (from [facility] [place] Urinary Cath still in place: No Assessment/Plan Chief Complaint/Hosp Course A/P: 46-year-old male being admitted to the [facility] floor for: #1 Right upper extremity cellulitis: White blood cell count improved. Elevated ESR and CRP. patient has had subjective fevers at home. Slowly improving. - continue Vanco and Zosyn for now. Likely will transition to p.o. antibiotics upon discharge, likely in 24 hours. - Tylenol as needed fevers. - IV pain control. #2 right elbow injury: X-ray on 05/14/17 showed a possible anterior fat pad sign. CT scan currently showed joint effusion with no obvious bony destructive process. However MRI was performed (see results below): - per ortho, no surgery indicated at this time. #3 transaminitis/hyperbilirubinemia: Patient denies any right upper quadrant tenderness. Does state he has a heavy drinking history. - f/u hepatitis panel and right upper quadrant ultrasound. - consider GI consult. - monitor for withdrawal, bananna bag continue #4 alcohol abuse: Patient is detoxifying presently, improved. Patient does report that he is going to AA meetings. He reports his last drink was 1 week ago. - again, f/u blood alcohol level and give patient daily banana bag in order vitamin B12 and folate levels, ativan prn #5 DVT GI prophylaxis: SCDs, Protonix Problems: Subjective 24 Hr Interval Summary Free Text/Dictation Patient still complaining of some right upper extremity pain and redness, although improved. Exam/Review of Systems Vital Signs Vitals Vital Signs Date Time Temp Pulse Resp B/P Pulse Ox O2 Delivery O2 Flow Rate FiO2 05/22/17 14:33 98.0 77 77 95/57 99 05/21/17 15:23 Room Air Intake and Output 05/21/17 05/21/17 05/22/17 15:00 23:00 07:00 Intake Total 611.2 ml 1650 ml 1961.2 ml Balance 611.2 ml 1650 ml 1961.2 ml Exam General: Patient is well-developed well-nourished The patient is alert oriented -3 lying comfortably in bed. HEENT: Atraumatic, normocephalic. The pupils are equal, round and reactive. Extraocular motor are intact Neck: Supple with full range of motion. No rigidity or meningismus Chest: Nontender Lungs: Clear to auscultation bilaterally no crackles rales or wheezing Heart: Normal S1-S2, Regular rhythm and rate. No murmur, S3, or S4 Abdomen: Soft , nontender, nondistended , bowel sounds are present. No right upper quadrant tenderness, no overt organomegaly appreciated no guarding no rebound tenderness , No costovertebral temporal angle mass Extremities: Right upper extremity elbow: Limited range of motion, + swelling warmth and redness. 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 Neurologic: Normal mental status, speech normal, cranial nerves II through XII are intact, motor and sensory are intact, no focal weakness Results Result Diagram: 05/22/17 0520 05/22/17 0520 Results 24 hrs Laboratory Tests Test 05/21/17 17:40 05/22/17 05:20 White Blood Count 7.3 8.0 Red Blood Count 2.97 L 2.75 L Hemoglobin 9.5 L 9.0 L Hematocrit 29.1 L 27.1 L Mean Corpuscular Volume 98.0 98.5 Mean Corpuscular Hemoglobin 32.0 32.7 Mean Corpuscular Hemoglobin Concent 32.6 33.2 Red Cell Distribution Width 15.0 H 15.2 H Platelet Count 358 # 370 Mean Platelet Volume 8.8 9.0 Neutrophils % 65.0 65.9 Lymphocytes % 14.3 L 13.2 L Monocytes % 14.5 H 15.3 H Eosinophils % 2.0 1.6 Basophils % 0.4 0.4 Nucleated Red Blood Cells % 0.3 H 0.0 Neutrophils # 4.8 5.3 Lymphocytes # 1.1 1.1 Monocytes # 1.1 H 1.2 H Eosinophils # 0.2 0.1 Basophils # 0.0 0.0 Nucleated Red Blood Cells # 0.0 0.0 Sodium Level 136 139 Potassium Level 3.8 3.6 Chloride Level 104 102 Carbon Dioxide Level 27 27 Anion Gap 9 14 Blood Urea Nitrogen 5 L 4 L Creatinine 0.73 0.66 Glucose Level 94 89 Calcium Level 7.9 L 8.3 L Medications Medications Current Medications Ondansetron HCl (Zofran Inj) 4 mg Q6H PRN IV NAUSEA AND/OR VOMITING Last administered on 05/18/17 20:53; Admin Dose 4 MG; Start 05/18/17 at 20:30 Acetaminophen (Tylenol Tab) 650 mg Q6H PRN PO PAIN LEVEL 1-3 OR FEVER; Start at 20:30 Morphine Sulfate (morphine) 2 mg Q4H PRN IV SEVERE PAIN LEVEL 7-10; Start at 20:30 Pantoprazole 40 mg 40 mg DAILY@06 IV Last administered on 05/22/17 06:22; Admin Dose 40 MG; Start 05/19/17 at 06:00 Piperacillin Sod/ Tazobactam Sod 100 ml @ 200 mls/hr Q6 IVPB Last administered on 05/22/17 13:01; Admin Dose 200 MLS/HR; Start 05/19/17 at 00:00 Multivitamins/ Thiamine HCl/ Folic Acid/Sodium Chloride (Mvi Adult/ Vitamin B1/ Folic Acid/NS) 1,011.2 ml @ 125 mls/ hr DAILY@09 IVPB Last administered on 05/22 08:48; Admin Dose 125 MLS/HR; Start 05/19/17 at 09:00 Lorazepam 1 mg 1 mg Q6H PRN IV AGITATION/ANXIETY; Start 05/19/17 at 01:00 Vancomycin HCl/ Sodium Chloride (Vancocin/NS) 150 ml @ 75 mls/hr Q8H IVPB Last administered on 05/22/17 08:48; Admin Dose 75 MLS/HR; Start 05/20/17 at 17: 00 MENDY BECERRA May 22, 2017 15:59
[2017-05-22 20:00] VITALS: BP 109/63; RESP 19
[2017-05-23] MEDS: PIPER-TAZO 3.375 GM IV (PMX) 100 ML IVPB SCH ×4 (00:19→18:17)
[2017-05-23] MEDS: VANCOMYCIN 750 MG in SOD CHLORIDE 0.9% 150 ML IVPB SCH ×3 (01:02→16:48)
[2017-05-23 02:00] VITALS: BP 110/64; RESP 18
[2017-05-23 06:03] LABS: ADD SCAN DIFF NO
[2017-05-23 06:04] LABS: BASOPHILS % 0.5 % (0.0-2.0); EOSINOPHILS # 0.1 10^3/ul (0.0-0.5); EOSINOPHILS % 1.1 % (0.0-7.0); HEMATOCRIT 28.8 % (42.0-52.0); HEMOGLOBIN 9.1 g/dl (14.0-18.0); LYMPHOCYTES # 1.2 10^3/ul (0.8-2.9); LYMPHOCYTES % 13.9 % (15.0-51.0); MEAN CORPUSCULAR HEMOGLOBIN 31.7 pg (29.0-33.0); MEAN CORPUSCULAR HGB CONC 31.6 g/dl (32.0-37.0); MEAN CORPUSCULAR VOLUME 100.3 fl (82.0-101.0); MEAN PLATELET VOLUME 8.7 fl (7.4-10.4); MONOCYTE # 1.2 10^3/ul (0.3-0.9); MONOCYTES % 13.9 % (0.0-11.0); NEUTROPHIL # 5.7 10^3/ul (1.6-7.5); NEUTROPHILS % 66.8 % (39.0-77.0); PLATELET COUNT 437 10^3/UL (140-415); RED BLOOD COUNT 2.87 10^6/ul (4.70-6.10); RED CELL DISTRIBUTION WIDTH 15.7 % (11.5-14.5); WHITE BLOOD COUNT 8.5 10^3/ul (4.8-10.8)
[2017-05-23] MEDS: PANTOPRAZOLE 40 MG INJ IV SCH (06:09)
[2017-05-23 06:40] LABS: CALCIUM 8.3 mg/dl (8.4-10.2); CREATININE 0.73 mg/dl (0.61-1.24); POTASSIUM 3.8 mmol/L (3.5-5.1)
[2017-05-23 08:18] VITALS: BP 101/64; RESP 19
[2017-05-23] MEDS: MULTIVITAMINS 10 ML, THIAMINE 100 MG, FOLIC ACID 1 MG in SOD CHLORIDE 0.9% 1,000 ML IVPB SCH (08:26)
[2017-05-23 14:00] VITALS: BP 111/69; RESP 18
--- NOTE | 2017-05-23 15:12 | PDOCDIS ---
Discharge Instructions CONDITION Patient Condition: Stable HOME CARE INSTRUCTIONS: Special Diet: REGULAR DIET ACTIVITY: Activity Restrictions: Slowly Increase Activity FOLLOW UP/APPOINTMENTS Follow-up Plan Please take your medications as prescribed. Please see her primary care doctor in the clinic in the next 1 week MENDY BECERRA May 23, 2017 15:12
[2017-05-23] MEDS ORDERED: MULT-761 PO (15:15)
[2017-05-23] MEDS ORDERED: FOLI-49 PO (15:15)
[2017-05-23] MEDS ORDERED: CEPH500C PO (15:15)
[2017-05-23] MEDS ORDERED: THIA100T10 PO (15:15)
--- NOTE | 2017-05-23 15:22 | DS ---
Date/Time of Note Date/Time of Note DATE: 05/23/17 TIME: 15:17 Discharge Summary Admission/Discharge Info Admit Date/Time May 18, 2017 at 18:34 Discharge Date/Time Discharge Diagnosis #1 Right upper extremity cellulitis: White blood cell count improved. Elevated ESR and CRP. patient has had subjective fevers at home. Slowly improving. #2 right elbow injury: X-ray on 05/14/17 showed a possible anterior fat pad sign. CT scan currently showed joint effusion with no obvious bony destructive process. However MRI was performed -based on results of orthopedic surgery team recommending medical management only #3 transaminitis/hyperbilirubinemia-likely secondary to heavy drinking history. #4 alcohol abuse -counseled on cessation Patient Condition: Stable Hx of Present Illness Hospital Course 46-year-old male who presents to the emergency department for a right elbow recheck. Patient was seen here on 05-14-17 and at that time diagnosed with a possible occult fracture of his right elbow secondary to an anterior fat pad. Patient states on 05-14-17, he was walking when he tripped and landed on patient cannot. Patient states since that time he has continued to have pain in his right elbow. Patient also reports swelling, redness and warmth to the affected area. Patient states he has been having tactile fevers. He reports taking ibuprofen for his symptoms. Patient is right-hand dominant. Patient denies any previous injuries to the affected extremity. He was admitted to medical surgical floor, started on IV antibiotics for right upper extremity cellulitis. He underwent MRI of the right elbow as well, which showed: IMPRESSION: 1. Small high-grade chondral defect in part to bone within the coronoid process of the ulna with a 2 x 2 mm focus of chondral delamination and underlying mild bone marrow edema. Very small focus of high-grade chondral loss along the opposing distal humerus. 2. Strain of the flexor digitorum superficialis muscle with a partial tear. 3. Strain of the deep brachialis muscle. 4. Moderate to large joint effusion. Diffuse edema throughout the subcutaneous soft tissues of the elbow. 5. The tendons and ligaments around the elbow are largely intact. Orthopedic surgery team will was consulted over the phone, they were aware of the MRI results, recommended medical management only at this time including no brace or surgical options. Patient continued on antibiotics, pain control medications. His redness symptoms improved, his range of motion also improved he had less pain. Regarding his alcohol abuse, he was counseled on cessation, and given banana bag and monitor for any signs of withdrawal. Patient is able to ambulate, tolerated p.o. diet, vital signs are stable. He will be discharged home today in improved condition please see medical list on this discharge summary for full discharge list of medications. Home Meds Active Scripts Folic Acid* (Folic Acid*) 1 Mg Tablet, 1 MG PO DAILY for 30 Days, TAB Prov:MENDY BECERRA S. 05/23/17 Thiamine* (Thiamine*) 100 Mg Tablet, 100 MG PO DAILY for 30 Days, TAB Prov:MENDY BECERRA S. 05/23/17 Multivitamin (MULTI VITAMIN DAILY) 1 Each Tablet, 1 TAB PO DAILY for 30 Days, TAB Prov:MENDY BECERRA S. 05/23/17 Cephalexin* (Cephalexin*) 500 Mg Capsule, 500 MG PO Q8, #21 CAP Prov:MENDY BECERRA S. 05/23/17 Discontinued Scripts Ibuprofen* (Motrin*) 800 Mg Tab, 800 MG PO Q6H Y for PAIN AND OR ELEVATED TEMP, #30 TAB Prov:COLTEN OSUNA DO 05/14/17 Primary Care Provider Care Physician No Primary Time spent on discharge: > 30 minutes Pending Labs Laboratory Tests Test 05/23/17 05:55 White Blood Count 8.510^3/ul (4.8-10.8) Red Blood Count 2.8710^6/ul (4.70-6.10) Hemoglobin 9.1g/dl (14.0-18.0) Hematocrit 28.8% (42.0-52.0) Mean Corpuscular Volume 100.3fl (82.0-101.0) Mean Corpuscular Hemoglobin 31.7pg (29.0-33.0) Mean Corpuscular Hemoglobin Concent 31.6g/dl (32.0-37.0) Red Cell Distribution Width 15.7% (11.5-14.5) Platelet Count 97015^3/UL (140-415) Mean Platelet Volume 8.7fl (7.4-10.4) Neutrophils % 66.8% (39.0-77.0) Lymphocytes % 13.9% (15.0-51.0) Monocytes % 13.9% (0.0-11.0) Eosinophils % 1.1% (0.0-7.0) Basophils % 0.5% (0.0-2.0) Nucleated Red Blood Cells % 0.0/100WBC (0.0-0.0) Neutrophils # 5.710^3/ul (1.6-7.5) Lymphocytes # 1.210^3/ul (0.8-2.9) Monocytes # 1.210^3/ul (0.3-0.9) Eosinophils # 0.110^3/ul (0.0-0.5) Basophils # 0.010^3/ul (0.0-0.1) Nucleated Red Blood Cells # 0.010^3/ul (0.0-0.0) Sodium Level 136mmol/L (135-144) Potassium Level 3.8mmol/L (3.5-5.1) Chloride Level 104mmol/L (97-110) Carbon Dioxide Level 29mmol/L (21-31) Anion Gap 7 (8-16) Blood Urea Nitrogen 4mg/dl (7-20) Creatinine 0.73mg/dl (0.61-1.24) Glucose Level 88mg/dl (70-220) Calcium Level 8.3mg/dl (8.4-10.2) MENDY BECERRA May 23, 2017 15:21
== END 2017-05-23 19:13 | disposition home or self-care (01) | DRG 603 ==
LOC: FTE 11:32 → PP2 18:34
PROVIDERS: ADMIT Internal Medicine; ATTEND Internal Medicine
DX: L03.113 Cellulitis of right upper limb (principal); E80.6 Other disorders of bilirubin metabolism; S56.811A Strain of other muscles, fascia and tendons at forearm level, right arm, initial encounter; S66.118A Strain of flexor muscle, fascia and tendon of other finger at wrist and hand level, initial encounter; M25.421 Effusion, right elbow; R74.0 Nonspecific elevation of levels of transaminase and lactic acid dehydrogenase [LDH]; W19.XXXA Unspecified fall, initial encounter; F10.10 Alcohol abuse, uncomplicated
CPT/HCPCS: 36415; 73200; 73220; 76705; 80048; 80053; 80061; 80202; 80306; 80307; 81001; 82550; 82553; 82565; 82607; 82746; 83036; 84443; 84484; 84520; 85025; 85651; 86140; 86704; 86706; 86709; 86803; 87340; 96374; 96375; C9113; J0696; J1170; J1885; J2405; J2543; J3370; J3411; J7030; Q9967

== ENCOUNTER 2017-07-10 01:00 | Emergency (ER) | payer SELFPAY ==
[~2017-07-10] VITALS: Ht 160 cm; Wt 62.0 kg
[~2017-07-10 01:00] MED LIST changes: +CEPH500C PO; +FOLI-49 PO; -IBUP800T25 PO; +MULT-761 PO; +THIA100T10 PO
[2017-07-10 01:08] VITALS: Ht 160 cm; Wt 62.0 kg
--- NOTE | 2017-07-10 02:54 | ERA ---
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 He has similar symptoms previously, denies chest pain with exertion or vomiting or diaphoresis. He denies abdominal pain, vomiting, dysuria. He smokes and drinks socially, denies illicit drug Past medical history: Anxiety past Surgical history: Right distal thumb amputation ROS All systems reviewed and are negative except as per history of present illness. Medications Home Meds Active Scripts Ibuprofen* (Motrin*) 600 Mg Tab, 600 MG PO Q6, #20 TAB Prov:FRANCISCO QUIÑONEZ MD 07/10/17 Discontinued Scripts Folic Acid* (Folic Acid*) 1 Mg Tablet, 1 MG PO DAILY for 30 Days, TAB Prov:RALATONYA,MENDY S. 05/23/17 Thiamine* (Thiamine*) 100 Mg Tablet, 100 MG PO DAILY for 30 Days, TAB Prov:RAHI,MENDY S. 05/23/17 Multivitamin (MULTI VITAMIN DAILY) 1 Each Tablet, 1 TAB PO DAILY for 30 Days, TAB Prov:RAHI,MENDY S. 05/23/17 Cephalexin* (Cephalexin*) 500 Mg Capsule, 500 MG PO Q8, #21 CAP Prov:RAHI,MENDY S. 05/23/17 Allergies Allergies: Coded Allergies: No Known Allergy (Unverified , 05/18/17) PMhx/Soc History of Surgery: No Anesthesia Reaction: No Hx Neurological Disorder: No Hx Respiratory Disorders: No Hx Cardiac Disorders: No Hx Psychiatric Problems: No Hx Miscellaneous Medical Probl: No Hx Alcohol Use: Yes (occasional) Hx Substance Use: No Hx Tobacco Use: No Physical Exam Vitals Vital Signs Date Time Temp Pulse Resp B/P Pulse Ox O2 Delivery O2 Flow Rate FiO2 07/10/17 05:46 98.2 60 20 114/70 97 Room Air 07/10/17 02:58 61 20 127/88 100 Room Air 07/10/17 01:08 98.2 73 20 149/104 100 Physical Exam Const: No acute distress. Head: Atraumatic. Eyes: Normal Conjunctiva. ENT: Normal External Ears, Nose and Mouth. Neck: Full range of motion. No meningismus. Resp: Clear to auscultation bilaterally. Cardio: Regular rate and rhythm. Abd: Soft, non distended, normal bowel sounds, non tender. Skin: No petechiae or rashes. Back: No midline or flank tenderness. Ext: No cyanosis, or edema. Neur: Awake and alert. No focal deficit Psych: Normal Mood and Affect. Result Diagram: 07/10/17 0300 07/10/17 0300 Results 24 hrs Laboratory Tests Test 07/10/17 03:00 White Blood Count 7.410^3/ul Red Blood Count 4.4510^6/ul Hemoglobin 13.8g/dl Hematocrit 41.8% Mean Corpuscular Volume 93.9fl Mean Corpuscular Hemoglobin 31.0pg Mean Corpuscular Hemoglobin Concent 33.0g/dl Red Cell Distribution Width 12.3% Platelet Count 39976^3/UL Mean Platelet Volume 9.1fl Neutrophils % 54.7% Lymphocytes % 30.5% Monocytes % 11.2% Eosinophils % 2.4% Basophils % 1.1% Nucleated Red Blood Cells % 0.0/100WBC Neutrophils # (Manual) 4.010^3/ul Lymphocytes # 2.310^3/ul Monocytes # 0.810^3/ul Eosinophils # 0.210^3/ul Basophils # 0.110^3/ul Nucleated Red Blood Cells # 0.010^3/ul Sodium Level 145mmol/L Potassium Level 3.5mmol/L Chloride Level 103mmol/L Carbon Dioxide Level 27mmol/L Anion Gap 19 Blood Urea Nitrogen 13mg/dl Creatinine 0.84mg/dl Glucose Level 81mg/dl Calcium Level 9.7mg/dl Troponin I < 0.012ng/ml Procedures/[place] [id number] Radiology Main Line: [phone] DIAGNOSTIC IMAGING REPORT Patient: TAMARA CHIANG : 1970 Age: 47 Sex: M MR #: [id number] DOS: 07/10/17 0321 Ordering MD: FRANCISCO QUIÑONEZ MD Location: E/R Room/Bed: PROCEDURE: Chest. CLINICAL INDICATION: Chest pain. TECHNIQUE: Single frontal view of the chest was obtained. COMPARISON: None. FINDINGS: The cardiac silhouette is magnified. The aortic arch is unremarkable. There is no focal consolidation, vascular congestion or pleural effusion. There is no pneumothorax. IMPRESSION: No evidence for active cardiopulmonary disease. .Faraz Tellez MD, MD Date Time Electronically viewed and signed by .Faraz Tellez MD, on 07/10/2017 04:10 .T/ CC: FRANCISCO QUIÑONEZ MD EKG: Read by emergency physician Rate/Rhythm: Normal Sinus Rhythm 70 beats/min QRS, ST, T-waves: No ST elevation, no T inversion, LVH Impression: Abnormal EKG MEDICAL MAKING DECISION: The patient is a 47-year-old male, presenting with acute chest wall pain. He is stable in emergency department and is stable for outpatient follow-up. I do not suspect ACS The differential diagnoses considered include but are not limited to acute coronary syndrome, acute myocardial infarction, pericarditis, pulmonary embolism , aortic dissection, pneumonia, pleural effusion, pneumothorax, GERD, chest wall pain. Departure Diagnosis: Primary Impression: Chest wall pain Condition: Good Comments He was discharged with Motrin I discussed the findings with the patient. I advised the patient to follow-up with the primary physician in about 1-2 days, sooner if needed and return if any concern. FRANCISCO QUIÑONEZ MD Jul 10, 2017 02:52
[2017-07-10 03:41] LABS: BASOPHIL # 0.1 10^3/ul (0.0-0.1); BASOPHILS % 1.1 % (0.0-2.0); EOSINOPHILS # 0.2 10^3/ul (0.0-0.5); EOSINOPHILS % 2.4 % (0.0-7.0); HEMATOCRIT 41.8 % (42.0-52.0); HEMOGLOBIN 13.8 g/dl (14.0-18.0); LYMPHOCYTES # 2.3 10^3/ul (0.8-2.9); LYMPHOCYTES % 30.5 % (15.0-51.0); MEAN CORPUSCULAR VOLUME 93.9 fl (82.0-101.0); MEAN PLATELET VOLUME 9.1 fl (7.4-10.4); MONOCYTE # 0.8 10^3/ul (0.3-0.9); MONOCYTES % 11.2 % (0.0-11.0); NEUTROPHILS % 54.7 % (39.0-77.0); PLATELET COUNT 333 10^3/UL (140-415); RED BLOOD COUNT 4.45 10^6/ul (4.70-6.10); RED CELL DISTRIBUTION WIDTH 12.3 % (11.5-14.5); WHITE BLOOD COUNT 7.4 10^3/ul (4.8-10.8)
[2017-07-10 03:58] LABS: ANION GAP 19 (8-16); BLOOD UREA NITROGEN 13 mg/dl (7-20); CALCIUM 9.7 mg/dl (8.4-10.2); CARBON DIOXIDE 27 mmol/L (21-31); CHLORIDE 103 mmol/L (97-110); CREATININE 0.84 mg/dl (0.61-1.24); GLUCOSE 81 mg/dl (70-220); POTASSIUM 3.5 mmol/L (3.5-5.1); SODIUM 145 mmol/L (135-144)
[2017-07-10 04:09] LABS: TROPONIN-I < 0.012 ng/ml (0.00-0.12)
--- NOTE | 2017-07-10 04:11 | RADRPT ---
PROCEDURE: Chest. CLINICAL INDICATION: Chest pain. TECHNIQUE: Single frontal view of the chest was obtained. COMPARISON: None. FINDINGS: The cardiac silhouette is magnified. The aortic arch is unremarkable. There is no focal consolidat ion, vascular congestion or pleural effusion. There is no pneumothorax. IMPRESSION: No evidence for active cardiopulmonary disease. .Faraz Tellez MD, MD Date Time Electronically viewed and signed by .Faraz Tellez MD, MD on 07/10/2017 04:10 .T/
[2017-07-10] MEDS ORDERED: IBUP-1542 PO (05:31)
[2017-07-10 05:46] VITALS: BP 114/70; PULSE 60; RESP 20; TEMP 98.2
== END 2017-07-10 05:49 | disposition home or self-care (01) ==
LOC: E/R 01:00
DX: R07.89 Other chest pain (principal)
CPT/HCPCS: 36415; 71010; 80048; 84484; 85025; 93005